=== PATIENT | male | born 1950 | race Caucasian/White ===

== ENCOUNTER 2020-06-30 22:20 | Emergency (ER) | payer MEDICARE ==
--- NOTE | 2020-06-30 23:02 | ER Document Report ---
ED GI/ - General Chief Complaint: Vertigo Stated Complaint: VOMITING Time Seen by Provider: 06/30/20 22:59 Mode of Arrival: Ambulatory Information source: Patient Notes: 06/30/20 23:16 - ED Nursing Note by SIN PUENTE Accabdifatah Num: [id number] : 1950 Patient Age: 70 PMD now at bedside Initialized on 06/30/20 23:16 - END OF NOTE 06/30/20 22:30 (created 06/30/20 23:11) - ED Nursing Note by SIN PUENTE Acct Num: [id number] : 1950 Patient Age: 70 Assumed care from ems of 70 yo male c/o sudden onset of vertigo with n/v after eating dinner at the [employer]. Pt had tested positive for COVID-19 last Apr. Pt had 1 episode of vomiting after being transferred from cot to bed, will ctm. MY NOTES 70-year-old male arrives with chief complaint of dizziness and headache and vomiting shortly after eating at the [employer] salmon and tomatoes and a salad. He vomited some red stuff which he thought may have been blood. He was complaining of some vertigo symptoms prior to eating his meal tonight also he took his Norvasc prior to eating his meal tonight and prior to his vomiting but he thought he may have vomited his medication as well. 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 Patient reports for the last 1 year he has had vertigo symptoms since March 2019. He does not take medications for this. He tries to "use a mantra type attitude in order to focus away from his vertigo." Patient denies any scombroid or ciguatera in the past; he has eaten salmon without any difficulties in the past. TRAVEL OUTSIDE OF THE [place] IN LAST 30 DAYS: No Past Medical History - General Information source: Patient - Social History Smoking Status: Never Smoker Cigarette use (# per day): No Chew tobacco use (# tins/day): No Smoking Education Provided: No Frequency of alcohol use: None Drug Abuse: None Lives with: Family Family History: Reviewed & Not Pertinent Patient has suicidal ideation: No Patient has homicidal ideation: No Review of Systems - Review of Systems Constitutional: See HPI, Weakness EENT: See HPI, Vertigo Cardiovascular: See HPI, Dizziness, Lightheaded Respiratory: No symptoms reported Gastrointestinal: See HPI, Nausea, Vomiting, Other - Also passing fiore colored pasty stools. But he denies any black tarry stools. Genitourinary: No symptoms reported Male Genitourinary: No symptoms reported Musculoskeletal: No symptoms reported Skin: No symptoms reported Hematologic/Lymphatic: No symptoms reported Neurological/Psychological: No symptoms reported Physical Exam - Vital signs Vitals: Temp 97.6 F 06/30/20 22:21 Interpretation: Hypertensive - General General appearance: Appears well, Alert - HEENT Head: Normocephalic, Atraumatic Eyes: Normal Extraocular movements intact: Yes Pupils: PERRL Nerve palsy: No Ears: Normal External canal: Normal Tympanic membrane: Serous effusion - real Sinus: Normal Nasal: Normal Pharynx: Normal Neck: Normal - Respiratory Respiratory status: No respiratory distress Chest status: Nontender Breath sounds: Normal Chest palpation: Normal - Cardiovascular Rhythm: Regular Heart sounds: Normal auscultation Murmur: No - Abdominal Inspection: Normal Distension: No distension Bowel sounds: Normal Tenderness: Nontender Organomegaly: No organomegaly - Rectal Prostate: Other - deferred - Genitourinary Scrotum: Other - deferred - Back Back: Normal, Nontender - Extremities General upper extremity: Normal inspection, Nontender, Normal color, Normal ROM, Normal temperature General lower extremity: Normal inspection, Nontender, Normal color, Normal ROM, Normal temperature, Normal weight bearing. No: Zurdo's sign - Neurological Neuro grossly intact: Yes Cognition: Normal Orientation: AAOx4 [place] Coma Scale Eye Opening: Spontaneous Sharon Coma Scale Verbal: Oriented Sharon Coma Scale Motor: Obeys Commands Sharon Coma Scale Total: 15 Speech: Normal Motor strength normal: LUE, RUE, LLE, RLE Sensory: Normal - Psychological Associated symptoms: Normal affect, Normal mood - Skin Skin Temperature: Warm Skin Moisture: Dry Skin Color: Normal Course - Vital Signs Vital signs: Temp Pulse Resp BP Pulse Ox 97.6 F 69 13 156/101 H 99 06/30/20 22:31 06/30/20 23:52 06/30/20 22:31 06/30/20 23:52 06/30/20 22:31 - Laboratory Result Diagrams: 06/30/20 22:45 06/30/20 22:45 Laboratory results interpreted by me: 06/30/20 06/30/20 06/30/20 22:35 22:45 22:45 Hgb 12.9 L RDW 15.5 H APTT Potassium 3.4 L Creatine Kinase 186 H Urine Protein 100 H 06/30/20 22:45 Hgb RDW APTT 36.4 H Potassium Creatine Kinase Urine Protein - Diagnostic Test Radiology reviewed: Reports reviewed - CXR no infiltrate - EKG Interpretation by Me EKG shows normal: Sinus rhythm Rate: Normal Rhythm: NSR, Other Critical Care Note - Critical Care Note Comments: I discussed this case with both patient and his niece who witnessed the event tonight. Niece reports that her uncle is a doctor and would like to know the creatinine the hemoglobin and hematocrit. I advised these are within normal limits and we will put in a referral for Dr. Headley motor pool driver Discharge - Discharge Clinical Impression: Vertigo Hypertension Qualifiers: Hypertension type: unspecified Qualified Code(s): I10 - Essential (primary) hypertension Serous otitis media Qualifiers: Chronicity: acute Laterality: bilateral Recurrence: non-recurrent Qualified Code(s): H65.03 - Acute serous otitis media, bilateral Disposition: HOME, SELF-CARE Additional Instructions: Follow-up with Dr. Headley motor pool driver as needed; if you return back to [place] please follow-up with a motor pool driver there. Take [id number] Prilosec and Pepcid. Especially of abdominal pain or black stools occur you need to follow-up with motor pool driver. Return to ER as needed Prescriptions: Meclizine HCl [Antivert 25 mg Tablet] 25 mg PO TID PRN #21 tablet PRN Reason: Mupirocin [Bactroban 2% Ointment 22 gm] 1 applic NASL HSP PRN #1 tube PRN Reason: Forms: Return to Work
[2020-06-30 23:41] LABS: ABSOLUTE EOSINOPHILS # (AUTO) 0.1 10^3/uL (0.0-0.6); ABSOLUTE LYMPHOCYTES (AUTO) 1.5 10^3/uL (0.5-4.7); ABSOLUTE MONOCYTES (AUTO) 0.7 10^3/uL (0.1-1.4); ABSOLUTE NEUT (AUTO) 7.4 10^3/uL (1.7-8.2); BASOPHILS % (AUTO) 0.2 % (0-2); EOSINOPHILS % (AUTO) 1.4 % (0-6); HEMATOCRIT 39.1 % (37.9-51.0); HEMOGLOBIN 12.9 g/dL (13.5-17.0); INTERNATIONAL RATION (INR) 0.99; LYMPHOCYTES % (AUTO) 15.5 % (13-45); MEAN CORPUSCULAR HEMOGLOBIN 27.9 pg (27.0-33.4); MEAN CORPUSCULAR VOLUME 85 fl (80-97); MONOCYTES % (AUTO) 7.1 % (3-13); PLATELET COUNT 187 10^3/uL (150-450); PROTHROMBIN TIME 13.3 SEC (11.4-15.4); RED BLOOD COUNT 4.61 10^6/uL (4.35-5.55); RED CELL DISTRIBUTION WIDTH 15.5 % (11.5-14.0); SEGMENTED NEUTROPHILS % (AUTO) 75.8 % (42-78); TOTAL CELLS COUNTED % (AUTO) 100 %; WHITE BLOOD COUNT 9.8 10^3/uL (4.0-10.5)
[2020-06-30 23:43] LABS: ALBUMIN 4.5 g/dL (3.5-5.0); ALKALINE PHOSPHATASE 83 U/L (38-126); ANION GAP 6 (5-19); ASPARTATE AMINO TRANSFERASE 41 U/L (17-59); BILIRUBIN,DIRECT 0.2 mg/dL (0.0-0.4); BILIRUBIN,TOTAL 0.6 mg/dL (0.2-1.3); BLOOD UREA NITROGEN 17 mg/dL (7-20); CALCIUM 9.2 mg/dL (8.4-10.2); CARBON DIOXIDE 30 mmol/L (22-30); CHLORIDE 102 mmol/L (98-107); CREATINE KINASE 186 U/L (55-170); GLUCOSE 109 mg/dL (75-110); POTASSIUM 3.4 mmol/L (3.6-5.0)
[2020-06-30 23:44] LABS: APPEARANCE,URINE CLEAR; BILIRUBIN,URINE NEGATIVE (NEGATIVE); COLOR,URINE STRAW; GLUCOSE, URINE NEGATIVE (NEGATIVE); KETONES,URINE NEGATIVE (NEGATIVE); LEUKOCYTE ESTERASE,URINE NEGATIVE (NEGATIVE); NITRITE,URINE NEGATIVE (NEGATIVE); PROTEIN,URINE 100 mg/dL (NEGATIVE); URINE SPECIFIC GRAVITY 1.014; UROBILINOGEN,URINE NEGATIVE mg/dL (<2.0)
[2020-06-30] MEDS ORDERED: ONDANSETRON 4 MG TAB.RAPDIS PO ONE (23:52)
[2020-06-30] MEDS ORDERED: MECLIZINE HCL 25 MG TABLET PO ONE (23:52)
[2020-07-01] MEDS ORDERED: CLONIDINE HCL 0.2 MG TABLET PO ONE (00:14)
[2020-07-01] MEDS ORDERED: NORMAL SALINE 1000 ML 1,000 ML IV ONE (00:14)
--- NOTE | 2020-07-01 01:36 | RADIOLOGY REPORT (SQ) ---
EXAM DESCRIPTION: CT HEAD WITHOUT IV CONTRAST COMPLETED DATE/TME: 07/01/2020 01:00 CLINICAL INDICATION: 70-year-old male with headache, vomiting and dizziness. COMPARISON: None. TECHNIQUE: CT brain without contrast. This exam was performed according to our departmental dose optimization program which includes use of automated exposure control, adjustment of the mA and/or kV according to patient size and/or use of iterative reconstruction technique. FINDINGS: Multifocal regions of patchy hypoattenuation are present in a subcortical and periventricular deep white matter distribution, nonspecific; however, most likely represent small vessel ischemic disease, age indeterminate. The ventricles, and sulci are prominent compatible with underlying volume loss. The painter-white matter differentiation is preserved. There is no mass effect, midline shift, intra- or extra-axial fluid collection/acute hemorrhage. The osseous structures are unremarkable. The paranasal sinuses and mastoid air cells are clear. IMPRESSION: 1. No acute intracranial abnormalities. Nonspecific white matter change most likely small vessel ischemic disease, age indeterminate. 2. CT is insensitive for early evaluation of acute stroke. If there is clinical concern for acute ischemia, an MRI may be considered.
[2020-07-01] MEDS ORDERED: ONDANSETRON ODT 4 MG TAB (6 TAB/ER DISP) PO PRN (02:15)
--- NOTE | 2020-07-01 02:46 | RADIOLOGY REPORT (SQ) ---
CHEST X-RAY 1 VIEW on 07/01/2020 at 12:05 AM CLINICAL INDICATION: Headache, dizziness, vomiting COMPARISON: None FINDINGS: A few wires are noted projecting over the chest. The lungs are clear. Cardiac, hilar and mediastinal contours are within normal limits. Pulmonary vascularity is within normal limits. Degenerative changes are noted in the left shoulder. There is mild scoliosis of the spine. The patient is status post a right shoulder arthroplasty. IMPRESSION: No acute disease.
[2020-07-01 02:48] VITALS: BP 163/94
--- NOTE | 2020-07-01 09:06 | EKG REPORT ---
SEVERITY:- ABNORMAL ECG - SINUS RHYTHM FIRST DEGREE AV BLOCK BORDERLINE T ABNORMALITIES, INFERIOR LEADS : Confirmed by: Mikhail Gómez MD 01-Jul-2020 09:05:36
== END 2020-07-01 03:10 | disposition home or self-care (01) ==
LOC: ER 22:20
DX: R42 Dizziness and giddiness (principal); H65.03 Acute serous otitis media, bilateral; R11.2 Nausea with vomiting, unspecified; I10 Essential (primary) hypertension; R51.9 Headache, unspecified; R19.5 Other fecal abnormalities; R53.1 Weakness; Z79.899 Other long term (current) drug therapy
CPT/HCPCS: 93005; 99285; 96360; 96361; 36415; 82550; 84443; 85025; 85610; 85730; 80053; 81001; 84484; 71045; 70450; 93010; A9270 ×4; J7030; S0119